=== PATIENT | female | born 1980 | race Caucasian/White ===

== ENCOUNTER 2017-04-03 17:27 | Emergency (ER) | payer BC, OTHER ==
[~2017-04-03] VITALS: Ht 182.9 cm; Wt 150.0 kg
[~2017-04-03 17:27] MED LIST: ADDE5TAB; CLON.5; XANA1TAB6
[2017-04-03 17:36] VITALS: BP 143/79; PULSE 87; RESP 17; TEMP 98.3; O2SAT 95
[2017-04-03] MEDS ORDERED: XANA1TAB2 PO (17:54)
[2017-04-03] MEDS ORDERED: AMPH1TAB29 PO (17:54)
[2017-04-03] MEDS ORDERED: VENL75TA PO (17:54)
--- NOTE | 2017-04-03 18:00 | PD ---
HPI Chief Complaint: Psychiatric Symptoms Time Seen by Provider: 17:40 Travel History International Travel<30 days: No Contact w/Intl Traveler<30days: No Traveled to known affect area: No History of Present Illness HPI 36-year-old female presents to the emergency department under Andrea act the local police for psychiatric evaluation. Patient states that her and her brother got into an argument. She states that he stated some really awful things to her. Her mother stuck up for him. She left the house in [place] her mother. She states she has been depressed recently since her and her fianc broke up. She states that she told her mother then asked him she felt suicidal , her mother should "hand me the pills". Apparently, her mother called the police and she was brought to the emergency Department under Andrea act. Denies any suicidal or homicidal ideation at this time. She smokes marijuana occasionally, takes alcohol occasionally, smokes 3 cigarettes a day. PFSH Past Medical History ADD: Yes Anxiety: Yes Gastrointestinal Disorders: Yes (ULCERATIVE COLITIS) ?: Unknown : 1 Past Surgical History Gynecologic Surgery: Yes () Social History Alcohol Use: No Tobacco Use: Yes (3 cigarettes per day) Substance Use: Yes (occaisonal marijuana) Allergies-Medications (Allergen,Severity, Reaction): Coded Allergies: penicillin G (Verified Allergy, Severe, Anaphylaxis, 04/03/17) Sulfa (Sulfonamide Antibiotics) (Verified Allergy, Mild, Hives, 04/03/17) Reported Meds & Prescriptions Reported Meds & Active Scripts Active Reported Adderall (Amphetamine-Dextroamphetamine) 5 Mg Tab 5 Mg PO DAILY Avoid late evening doses. Space doses at least 4 to 6 hours if more than once/day dosing. Xanax (Alprazolam) 1 Mg Tab 1 Mg PO Q6H PRN Effexor (Venlafaxine HCl) 75 Mg Tab 75 Mg PO DAILY Review of Systems Except as stated in HPI: all other systems reviewed are Neg Physical Exam Narrative GENERAL: Well-nourished, well-developed female patient, afebrile. SKIN: Focused skin assessment warm/dry. HEAD: Normocephalic. Atraumatic. EYES: No scleral icterus. No injection or drainage. NECK: Supple, trachea midline. No JVD or lymphadenopathy. CARDIOVASCULAR: Regular rate and rhythm without murmurs, gallops, or rubs. RESPIRATORY: Breath sounds equal bilaterally. No accessory muscle use. Lungs sounds are clear to auscultation. GASTROINTESTINAL: Abdomen soft, non-tender, nondistended. MUSCULOSKELETAL: No cyanosis, or edema. PSYCHIATRIC: No delusional thought processes. No hallucinations. Data Data Last Documented VS Vital Signs Date Time Temp Pulse Resp B/P (MAP) Pulse Ox O2 Delivery O2 Flow Rate FiO2 04/03/17 17:36 98.3 87 17 143/79 (100) 95 Orders Orders Complete Blood Count With Diff (04/03/17 17:56) Comprehensive Metabolic Panel (04/03/17 17:56) Ed Urine Pregnancytest Poc (04/03/17 17:56) Psych Screen (04/03/17 17:56) Drug Screen, Random Urine (04/03/17 17:56) Alcohol (Ethanol) (04/03/17 17:56) Labs Laboratory Tests Test 04/03/17 18:18 White Blood Count 9.9 TH/MM3 Red Blood Count 4.55 MIL/MM3 Hemoglobin 14.8 GM/DL Hematocrit 41.4 % Mean Corpuscular Volume 91.0 FL Mean Corpuscular Hemoglobin 32.4 PG Mean Corpuscular Hemoglobin Concent 35.6 % Red Cell Distribution Width 14.3 % Platelet Count 211 TH/MM3 Mean Platelet Volume 8.7 FL Neutrophils (%) (Auto) 64.4 % Lymphocytes (%) (Auto) 28.1 % Monocytes (%) (Auto) 6.1 % Eosinophils (%) (Auto) 0.9 % Basophils (%) (Auto) 0.5 % Neutrophils # (Auto) 6.4 TH/MM3 Lymphocytes # (Auto) 2.8 TH/MM3 Monocytes # (Auto) 0.6 TH/MM3 Eosinophils # (Auto) 0.1 TH/MM3 Basophils # (Auto) 0.1 TH/MM3 CBC Comment DIFF FINAL Differential Comment Blood Urea Nitrogen 10 MG/DL Creatinine 0.76 MG/DL Random Glucose 94 MG/DL Total Protein 7.6 GM/DL Albumin 3.7 GM/DL Calcium Level 8.5 MG/DL Alkaline Phosphatase 65 U/L Aspartate Amino Transf (AST/SGOT) 19 U/L Alanine Aminotransferase (ALT/SGPT) 37 U/L Total Bilirubin 0.6 MG/DL Sodium Level 139 MEQ/L Potassium Level 3.2 MEQ/L Chloride Level 106 MEQ/L Carbon Dioxide Level 24.9 MEQ/L Anion Gap 8 MEQ/L Estimat Glomerular Filtration Rate 86 ML/MIN Urine Opiates Screen NEG Urine Barbiturates Screen NEG Urine Amphetamines Screen POS Urine Benzodiazepines Screen POS Urine Cocaine Screen NEG Urine Cannabinoids Screen POS Ethyl Alcohol Level LESS THAN 3 MG/DL MDM Medical Decision Making Medical Screen Exam Complete: Yes Emergency Medical Condition: Yes Medical Record Reviewed: Yes Differential Diagnosis Depression versus anxiety versus medical clearance Narrative Course 36-year-old female presents to the emergency Department under Andrea act by local police. CBC, CMP, alcohol level, urine drug screen, urine test are ordered and pending. CBC is unremarkable. CMP shows hypokalemia at 3.2, no acute abnormality. Alcohol level is less than 3. UDS is positive for amphetamines, benzodiazepines , cannabinoids. Patient is given potassium 20 mg by mouth. She is medically cleared for psychiatric screening and disposition. Mental health screening discussed with the patient. Psychiatric screen ordered. Diagnosis Primary Impression: Anxiety Additional Instructions: Patient is medically cleared for psychiatric screening and disposition. Condition: Stable Merlene Arauz Apr 03, 2017 18:00
[2017-04-03 18:50] LABS: AUTOMATED NEUTROPHIL # 6.4 TH/MM3 (1.8-7.7); BASOPHIL # 0.1 TH/MM3 (0-0.2); BASOPHIL % 0.5 % (0.0-2.0); EOSINOPHIL # 0.1 TH/MM3 (0-0.4); EOSINOPHIL % 0.9 % (0.0-4.0); HEMATOCRIT 41.4 % (35.0-46.0); HEMO FLAGS DIFF FINAL; LYMPH % 28.1 % (9.0-44.0); LYMPHOCYTE # 2.8 TH/MM3 (1.0-4.8); MEAN CORPUSCULAR HEMOGLOBIN 32.4 PG (27.0-34.0); MEAN CORPUSCULAR HGB CONC 35.6 % (32.0-36.0); MONO % 6.1 % (0.0-8.0); NEUT % 64.4 % (16.0-70.0); PLATELET COUNT 211 TH/MM3 (150-450); RED BLOOD COUNT 4.55 MIL/MM3 (4.00-5.30); RED CELL DISTRIBUTION WIDTH 14.3 % (11.6-17.2); WHITE BLOOD COUNT 9.9 TH/MM3 (4.0-11.0)
[2017-04-03 19:08] LABS: ALT (GPT) 37 U/L (10-53); ANION GAP 8 MEQ/L (5-15); AST (GOT) 19 U/L (15-37); BICARBONATE 24.9 MEQ/L (21.0-32.0); BLOOD UREA NITROGEN 10 MG/DL (7-18); CHLORIDE 106 MEQ/L (98-107); GLOMERULAR FILTRATION RATE 86 ML/MIN (>89); POTASSIUM 3.2 MEQ/L (3.5-5.1); SODIUM (NA) 139 MEQ/L (136-145)
[2017-04-03 19:10] LABS: ALKALINE PHOSPHATASE 65 U/L (45-117); TOTAL BILIRUBIN ADULT 0.6 MG/DL (0.2-1.0)
[2017-04-03 19:16] LABS: ALCOHOL LESS THAN 3 MG/DL (0-5)
[2017-04-03 22:35] VITALS: BP 115/65; PULSE 77; RESP 18
[2017-04-04 01:45] VITALS: BP 140/65; PULSE 76; RESP 18; TEMP 97.1; O2SAT 97
[2017-04-04 05:54] VITALS: BP 170/74; PULSE 88; RESP 16; TEMP 97; O2SAT 99
--- NOTE | 2017-04-04 15:08 | PD ---
History of Present Illness Chief Complaint: Psychiatric Symptoms Time Seen by Provider: 15:00 Travel History International Travel<30 Days: No Contact w/Intl Traveler<30days: No Known affected area: No Legal Status Legal Status: Andrea Act Andrea Act Signed By: Khoa Duarte History of Present Illness: 36-year-old female Em[place] acted by law enforcement for suicidal ideation. Patient reports she got into a verbal altercation with her mother and brother, with whom she lives. Her brother is an adobe block maker who is attempting to pass the bar exam. He accused her of being demanding and unreasonable. Patient left the house. Apparently she did make suicidal statements. However she is currently denying any suicidal or homicidal ideation, plan or intent. She has no psychotic symptoms. Her cognition is intact. She is verbally kate for safety and she is competent to do so. She states her mother has already called inquiring after her welfare. 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 She is willing to accept treatment on an outpatient basis. PFSH Past Medical History ADD: Yes Anxiety: Yes Gastrointestinal Disorders: Yes (ULCERATIVE COLITIS) ?: Unknown : 1 Past Surgical History Gynecologic Surgery: Yes () Psychiatric History Psychiatric History Hx Psychiatric Treatment: YES, HX OF PTSD/VAL/ANXIETY/DEPRESSION/UC/ADD History of Inpatient Treatment: No Guns or firearms in home: No Social History Hx Alcohol Use: No Hx Tobacco Use: Yes (3 cigarettes per day) Hx Substance Use: Yes (occaisonal marijuana) Substance Use Type: Alcohol, Marijuana Hx of Substance Use Treatment: Yes Allergies-Medications (Allergen,Severity, Reaction): Coded Allergies: penicillin G (Verified Allergy, Severe, Anaphylaxis, 04/03/17) Sulfa (Sulfonamide Antibiotics) (Verified Allergy, Mild, Hives, 04/03/17) Reported Meds & Prescriptions Reported Meds & Active Scripts Active Reported Adderall (Amphetamine-Dextroamphetamine) 5 Mg Tab 5 Mg PO DAILY Avoid late evening doses. Space doses at least 4 to 6 hours if more than once/day dosing. Xanax (Alprazolam) 1 Mg Tab 1 Mg PO Q6H PRN Effexor (Venlafaxine HCl) 75 Mg Tab 75 Mg PO DAILY Review of Systems Except as stated in HPI: all other systems reviewed are Neg Exam Alert: Yes [place]: Person, Place, Date, Situation Mood: Calm Affect: Appropriate Speech: Clear, Logical Eye Contact: Normal Memory Intact: Immediate, Recent, Remote Insight/Judgement Adequate MDM Medical Decision Making Medical Record Reviewed: Yes Assessment/Plan Patient interviewed at bedside, case discussed with nurse, medical record reviewed. Patient is verbally kate for safety and she is competent to do so. She does not meet criteria for civil commitment or involuntary psychiatric hospitalization. She is willing to seek psychiatric treatment as an outpatient and this is the least restrictive alternative. Orders Orders Complete Blood Count With Diff (04/03/17 17:56) Comprehensive Metabolic Panel (04/03/17 17:56) Ed Urine Pregnancytest Poc (04/03/17 17:56) Psych Screen (04/03/17 17:56) Drug Screen, Random Urine (04/03/17 17:56) Alcohol (Ethanol) (04/03/17 17:56) Diet Regular Basic (04/03/17 Dinner) Hydroxyzine Pamoate (Vistaril) (04/03/17 21:00) Diet Regular Basic (04/04/17 Breakfast) Diet Regular Basic (04/04/17 Lunch) Results Vital Signs Date Time Temp Pulse Resp B/P (MAP) Pulse Ox O2 Delivery O2 Flow Rate FiO2 04/04/17 05:54 97.0 88 16 170/74 (106) 99 04/04/17 01:45 97.1 76 18 140/65 (90) 97 04/03/17 22:35 77 18 115/65 (82) Room Air 04/03/17 17:36 98.3 87 17 143/79 (100) 95 Laboratory Tests Test 04/03/17 18:18 White Blood Count 9.9 Red Blood Count 4.55 Hemoglobin 14.8 Hematocrit 41.4 Mean Corpuscular Volume 91.0 Mean Corpuscular Hemoglobin 32.4 Mean Corpuscular Hemoglobin Concent 35.6 Red Cell Distribution Width 14.3 Platelet Count 211 Mean Platelet Volume 8.7 Neutrophils (%) (Auto) 64.4 Lymphocytes (%) (Auto) 28.1 Monocytes (%) (Auto) 6.1 Eosinophils (%) (Auto) 0.9 Basophils (%) (Auto) 0.5 Neutrophils # (Auto) 6.4 Lymphocytes # (Auto) 2.8 Monocytes # (Auto) 0.6 Eosinophils # (Auto) 0.1 Basophils # (Auto) 0.1 CBC Comment DIFF FINAL Differential Comment Blood Urea Nitrogen 10 Creatinine 0.76 Random Glucose 94 Total Protein 7.6 Albumin 3.7 Calcium Level 8.5 Alkaline Phosphatase 65 Aspartate Amino Transf (AST/SGOT) 19 Alanine Aminotransferase (ALT/SGPT) 37 Total Bilirubin 0.6 Sodium Level 139 Potassium Level 3.2 Chloride Level 106 Carbon Dioxide Level 24.9 Anion Gap 8 Estimat Glomerular Filtration Rate 86 Urine Opiates Screen NEG Urine Barbiturates Screen NEG Urine Amphetamines Screen POS Urine Benzodiazepines Screen POS Urine Cocaine Screen NEG Urine Cannabinoids Screen POS Ethyl Alcohol Level LESS THAN 3 Diagnosis Primary Impression: Adjustment disorder with mixed disturbance of emotions and conduct Additional Instructions: Patient is medically cleared for psychiatric screening and disposition. Condition: Stable Lauri Finnegan MD Apr 04, 2017 15:08
--- NOTE | 2017-04-04 16:56 | PD ---
Physical Exam Time Seen by Provider: 16:[address] Finnegan has evaluated the patient and the patient will be discharged home. Data Data Last Documented VS Vital Signs Date Time Temp Pulse Resp B/P (MAP) Pulse Ox O2 Delivery O2 Flow Rate FiO2 04/04/17 05:54 97.0 88 16 170/74 (106) 99 04/03/17 22:35 Room Air Orders Orders Complete Blood Count With Diff (04/03/17 17:56) Comprehensive Metabolic Panel (04/03/17 17:56) Ed Urine Pregnancytest Poc (04/03/17 17:56) Psych Screen (04/03/17 17:56) Drug Screen, Random Urine (04/03/17 17:56) Alcohol (Ethanol) (04/03/17 17:56) Diet Regular Basic (04/03/17 Dinner) Hydroxyzine Pamoate (Vistaril) (04/03/17 21:00) Diet Regular Basic (04/04/17 Breakfast) Diet Regular Basic (04/04/17 Lunch) Diet Regular Basic (04/04/17 Dinner) Labs Laboratory Tests Test 04/03/17 18:18 White Blood Count 9.9 TH/MM3 Red Blood Count 4.55 MIL/MM3 Hemoglobin 14.8 GM/DL Hematocrit 41.4 % Mean Corpuscular Volume 91.0 FL Mean Corpuscular Hemoglobin 32.4 PG Mean Corpuscular Hemoglobin Concent 35.6 % Red Cell Distribution Width 14.3 % Platelet Count 211 TH/MM3 Mean Platelet Volume 8.7 FL Neutrophils (%) (Auto) 64.4 % Lymphocytes (%) (Auto) 28.1 % Monocytes (%) (Auto) 6.1 % Eosinophils (%) (Auto) 0.9 % Basophils (%) (Auto) 0.5 % Neutrophils # (Auto) 6.4 TH/MM3 Lymphocytes # (Auto) 2.8 TH/MM3 Monocytes # (Auto) 0.6 TH/MM3 Eosinophils # (Auto) 0.1 TH/MM3 Basophils # (Auto) 0.1 TH/MM3 CBC Comment DIFF FINAL Differential Comment Blood Urea Nitrogen 10 MG/DL Creatinine 0.76 MG/DL Random Glucose 94 MG/DL Total Protein 7.6 GM/DL Albumin 3.7 GM/DL Calcium Level 8.5 MG/DL Alkaline Phosphatase 65 U/L Aspartate Amino Transf (AST/SGOT) 19 U/L Alanine Aminotransferase (ALT/SGPT) 37 U/L Total Bilirubin 0.6 MG/DL Sodium Level 139 MEQ/L Potassium Level 3.2 MEQ/L Chloride Level 106 MEQ/L Carbon Dioxide Level 24.9 MEQ/L Anion Gap 8 MEQ/L Estimat Glomerular Filtration Rate 86 ML/MIN Urine Opiates Screen NEG Urine Barbiturates Screen NEG Urine Amphetamines Screen POS Urine Benzodiazepines Screen POS Urine Cocaine Screen NEG Urine Cannabinoids Screen POS Ethyl Alcohol Level LESS THAN 3 MG/DL MDM Supervised Visit with IDA: No Narrative Course Dr. Finnegan has evaluated the patient and the patient will be discharged home. I spoke with KYAW Whaley and the patient has an appointment on Tuesday with a therapist. She denies suicidal or homicidal ideations at this time. She has friends and family for support. Her dad is on his way to pick her up from the hospital. Patient contracts safety and outpatient follow-up and is stable for discharge. Diagnosis Primary Impression: Adjustment disorder with mixed disturbance of emotions and conduct Referrals: Primary Care Physician Psychiatrist [facility] Patient Instructions: General Instructions Departure Forms: Work Release, Enter return to work date: Apr 06, 2017 Special Instructions: Please excuse Nikki from work 04/03/17, 04/04/17 and . Tests/Procedures Additional Instruction: Follow-up with primary care provider Follow-up with psychiatry on Tuesday Return to the emergency department immediately with worsening of symptoms Med/Other Pt SpecificInfo: No Meds Exist/No RX given Disposition: DISCHARGE HOME Condition: Stable Ange Levin Apr 04, 2017 16:56
== END 2017-04-04 17:16 | disposition home or self-care (01) ==
LOC: NEPD 17:27 → NEPJ 04-04 17:16
DX: F43.25 Adjustment disorder with mixed disturbance of emotions and conduct (principal); Z72.0 Tobacco use; F12.90 Cannabis use, unspecified, uncomplicated
CPT/HCPCS: 80053; 80307; 84703; 85025; 99284